=== PATIENT | female | born 1980 | race Caucasian/White ===

== ENCOUNTER 2024-02-03 11:59 | Day surgery (SDC) | payer BC ==
[2024-01-29 14:36] VITALS: BMI 24.4
[2024-02-03 14:28] VITALS: RESP 18
[2024-02-03 14:46] VITALS: BP 110/60; PULSE 89; TEMP 98
== END 2024-02-03 14:30 | disposition home or self-care (01) ==
LOC: FASU-ENDO 11:59
PROVIDERS: ATTEND Internal Medicine Gastroenterology
PROC: 0DJD8ZZ Inspection of Lower Intestinal Tract, Via Natural or Artificial Opening Endoscopic (ICD-10-PCS; principal; 2024-02-03 13:42)
DX: Z12.11 Encounter for screening for malignant neoplasm of colon (principal); K64.1 Second degree hemorrhoids; K64.8 Other hemorrhoids
CPT/HCPCS: 81025